=== PATIENT | male | born 1960 | race Caucasian/White ===

== ENCOUNTER 2025-04-14 06:06 | Inpatient (IN) | payer OTHER, SELFPAY ==
[2025-04-08 11:23] LABS: Hematocrit 49.2 % (39.0-52.0); Hemoglobin 16.4 g/dL (13.0-18.0); Mean Corp Hgb Conc. 33.3 g/dL (33.0-37.0); Mean Corpuscular Hgb 30.3 pg (27.0-31.0); Mean Corpuscular Volume 90.8 fL (80.0-94.0); Mean Platelet Volume 13.7 fL (7.4-10.4); Platelet Count 180 10^3/uL (130-400); Red Blood Cell Count 5.42 10^6/uL (4.70-6.10); Red Cell Dist. Width 13.1 % (11.5-14.5); White Blood Cell Count 10.9 10^3/uL (4.8-10.8)
[2025-04-08 12:59] LABS: Glycohemoglobin (HgbA1c) 5.4 % (4.0-5.6)
[2025-04-08 13:45] VITALS: BMI 38.6
[2025-04-08 13:52] LABS: ALT (SGPT) 17 U/L (0-50); AST (SGOT) 20 U/L (17-59); Albumin 4.3 g/dl (3.5-5.0); Alkaline Phosphatase 70 U/L (38-126); Blood Urea Nitrogen 24 mg/dl (9-20); Carbon Dioxide 22 mmol/L (22-30); Chloride 108 mmol/L (98-107); Estimated Creatinine Clearance 69 ml/min; Glucose 90 mg/dl (70-99); Potassium 4.9 mmol/L (3.5-5.1); Sodium 142 mmol/L (135-145); Total Bilirubin 2.5 mg/dl (0.2-1.3); Total Protein 6.9 g/dl (6.3-8.2); eGFR 56.48
[2025-04-08 15:10] VITALS: BMI 38.6
[2025-04-14] VITALS (47 sets, daily range): BP systolic 55–151; BP diastolic 40–91; PULSE 81; O2SAT 95
[2025-04-14] MEDS: CELEBREX 200 MG PO (06:23)
[2025-04-14] MEDS: TYLENOL 650 MG PO ×4 (06:23→20:09)
[2025-04-14] MEDS: NORMOSOL-R/PLASMALYTE-A 1000 IV ×2 (06:40→11:42)
--- NOTE | 2025-04-14 08:12 | W.PN.ORTHO ---
Today's Communication / Plan
-
d/c when stable
Assessment
.
Distal Motor Intact: Yes
Dressing:
Clean, dry and intact.
Assessment:
Hypotensive pxgc-gcoenhnagik-spylqjvuho consulted-Diego being weaned
-improving and likely off by am-asymptomatic
-continue Midodrine given need for heart meds which will lower pressure
Coronary artery disease with ischemic cardiomyopathy and
diminished ejection fraction. IV fluid rate will be lowered. He
will be placed on telemetry with his heart meds resumed
and daily weight w/ I&O monitored.
Near morbid obesity. We will provide cefadroxil prophylaxis
following discharge for infection prevention.
__
Plan
.
Surgery / Date: L TKA -early d/c
DVT Prophylaxis: Aspirin
Activity:
Out of bed.
PT/OT
Discharge Plan: Home w/ Outpatient PT
Subjective
.
.:
No complaints
Vital Signs and Labs
.
Vital Signs and Labs:
Lab Results
04/08/25 10:48
04/08/25 10:48
Temp Pulse Resp BP Pulse Ox
97.6 F 77 16 104/72 98
04/14/25 06:29 04/14/25 06:29 04/14/25 06:29 04/14/25 06:29 04/14/25 06:29
Physical Exam
-
HEENT: No pallor, cyanosis, or jaundice. Throat clear.
NECK: Supple. No JVD.
RESPIRATORY: Lungs clear to auscultation.
CVS: S1, S2 normal. RRR.� No murmur, rub or gallop.
ABDOMEN: Soft, non-tender. No distension. BS+/normal.
EXTREMITIES: strength equal, no calf pain with palpation
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 No focal deficits. airplane woodworker grossly intact
--- NOTE | 2025-04-14 09:25 | OR.RPT ---
Operative Report
Operative Report
Orthopaedic Surgery Operative Note
DATE OF OPERATION: 04/14/2025
PREOPERATIVE DIAGNOSES: Osteoarthritis, left knee.
POSTOPERATIVE DIAGNOSES: Osteoarthritis, left knee.
OPERATION PERFORMED:
1) Left total knee arthroplasty (CPT 63143 - 22 modifier)
2) Intraosseous administration of analgesic (CPT 95165)
SURGEON: Jaren Melgar MD
ASSISTANTS: Timi Mcgill PA-C who helped with patient and limb positioning and retraction
ANESTHESIA: Spinal by anesthesia plus intraoperative infusion of morphine into the tibial metaphysis by Dr. Melgar
COMPLICATIONS: None.
ESTIMATED BLOOD LOSS: 20mL
DRAINS: None
TOURNIQUET TIME: 54 minutes.
IMPLANTS:
- Julieta Persona CR Femur, size 8
- Julieta Persona tibia base plate, size E
- Julieta Persona ultracongruent articular surface, 10 mm
- DJO [place] bone cement
INDICATIONS: The patient presented to my office with debilitating left knee pain due to osteoarthritis. We reviewed the natural history of this problem, as well as the risks, benefits, and alternatives of various treatment options. The patient
exhausted all nonoperative treatment options and wished to proceed with knee replacement surgery. The patient understood the risks which included, but were not limited to, bleeding, infection, failure to relieve pain, more pain than preop, damage to
blood vessels and nerves, need for reoperation, mechanical failure of the implants, wound healing problems, stiffness, instability, blood clot, pulmonary embolism, myocardial infarction, pneumonia, arrhythmia, CVA, and . The patient accepted
these risks and wished to proceed. All questions were answered, and informed consent was obtained.
PROCEDURE IN DETAIL: The patient was identified in the preoperative holding area. The left knee was identified as the operative site. The patient was taken in the operating room and placed in a supine position on the operating table. Spinal
anesthesia was performed. IV antibiotics and tranexamic acid were administered. An SCD was placed on the right lower extremity. A well-padded tourniquet was placed on the proximal thigh. All bony prominences were well padded. The left lower
extremity was prepped and draped in the usual sterile fashion.
We performed a surgical time-out. An interarticular block was performed with local anesthetic with epinephrine. The limb was exsanguinated with an Esmarch bandage, then the tourniquet was inflated to 250 mmHg. I performed interosseous administration
of morphine-saline solution via a Jamshidi style intraosseous needle into the proximal medial tibial metaphysis as described by Elder Romero MD. This was performed to aid in pain control. A midline skin incision was made followed by a medial
parapatellar arthrotomy. A subperiosteal peel was performed on the medial tibia. I excised part of the infrapatellar fat pad to improve our visualization as well as tissue over anterior femur. The patella was everted and the knee was flexed. I
excised the remnants of the anterior and posterior cruciate ligaments as well as tibial and femoral osteophytes with rongeurs.
The knee was flexed, and the extramedullary tibial cutting guide was aligned. [place] was aligned at neutral, rotation was centered on the tibial tubercle, and coronal alignment was aligned with the mechanical axis of the tibia and center of the ankle
joint. The cut height was 10mm off the lateral tibia joint surface. The guide was secured into place. The MCL and LCL were protected. The tibia surface was cut. The cut surface was inspected after removal to ensure appropriate height and slope based
on the preoperative plan. The cut was checked with a drop josé manuel. It was centered nicely at the ankle.
A drill was used to open the femoral canal. The intramedullary distal femoral cutting guide was inserted into the femur. This was set at 5 degrees +0. This was secured into place with three pins. The cut level was checked with an elina wing. The
distal femur was cut through the cutting guide. The IM guide was reinserted to double check that the level of resection was flush and in appropriate alignment.
Callahan's line and the transepicondylar axis were marked on the femur. The femoral sizing guide was applied to the anterior femur. Size was between 7 and 8. 8 was selected to start. Pins were inserted, and the 4-in-1 cutting guide was applied and
secured into place. The rotation was compared to Callahan's line, the transepicondylar axis, and the neutral tibia cut and was found to be appropriate. The width was checked and found to be appropriate and lateralized on the femur. The anterior,
posterior, and chamfur cuts were made. A lamina test design engineer was used to open the flexion gap, and posterior osteophytes were removed with a curved osteotome. The remnant medial and lateral meniscus were also removed. I prophylactically cauterized the
lateral geniculate arteries. A 10mm spacer block was applied to the flexion gap and was noted to be balanced medially and laterally. The knee was extended, and the block showed symmetric to extension and flexion gaps.
The tibia was exposed and sized. Rotation was set in line with the tibial tubercle and congruent with the femur. The trial was secured into place with two pins. The trial femur was impacted into place, and a trial articular surface was placed. The
knee was taken through range of motion and noted to be stable throughout the arc of motion without gaping or excess tension. The patella tracked centrally throughout the arc of motion without need for further releases. No full thickness cartilage
defects.
The trials were removed. The tibia keel was prepared with the punch and the drill. The bone surfaces were irrigated with sterile saline and dried. The cement was mixed in a vacuum mixer. Cement gun was used to apply cement to the tibial surface and
the undersurface of the tibial implant. Cement was pressurized into the tibial canal and tibia surface. The tibial component was impacted into place. Excess cement was removed. Cement was applied to the femoral surface and the femoral component. The
femoral component was impacted into place, and excess cement removed. A trial articular surface was inserted, and the knee was extended while the cement polymerized. The tourniquet was let down, and meticulous hemostasis was achieved. Dilute
betadine was poured into the wound and allowed to soak for 3 minutes. The knee was irrigated with copious normal saline.
Once the cement was polymerized, the trial articular surface was removed. Any excess cement was removed. The knee was trialed, and the final articular surface was selected and inserted into the tibial locking mechanism. The knee was reduced. A fresh
drape was applied to the surgical field.
The arthrotomy was closed with 0-PDS. Once closed, an interarticular block was performed with local anesthetic with epi. The deep dermal layer was closed with 2-0 PDS, and the subcuticular skin was closed with 3-0 monocryl. A Dermabond Prineo
dressing was applied to the skin in full flexion. Once this was completely dry, a sterile waterproof dressing was applied.
The anesthesia team performed an adductor canal block in the OR. The patient awoke from anesthesia without any difficulties. The sponge and instrument counts were correct x2 at the end of the case.
22 modifier was added for BMI >35kg/m2 which added 20 additional minutes for positioning, exposure, and implanting the components.
Kain Melgar MD
[2025-04-14] MEDS: NEO-SYNEPHRINE 250 IV (09:40)
[2025-04-14] MEDS: ROXICODONE 5 MG PO ×2 (10:28→18:41)
--- NOTE | 2025-04-14 11:34 | CON.CAR ---
Addendum entered and electronically signed by Curly Masterson MD 04/14/25 15:01:
I saw and examined the patient.
The BOX WORKER's note was reviewed and I agree with the note.
Comment: 64 y/o male ([facility] cardiology, Dr. Murrell) with hx CAD with hx stenting (2012 per OP chart), ICM EF (most recent EF unknown he thinks 30-35% in December, was 20-25% 2020 by echo, ICD (BS), HTN, HLD, COLIN, and obesity s/p L TKA today and had
some post op hypotension briefly requiring phenylephrine. Now off and sbp back to 110's. He has no complaints. He has no sob or dizziness. No cp. Exam is rrr, no m/r/g, lungs cta. I suspect this is transient post op hypotnesion due to anesthetics
and his chronic gdmt. Will hold entresto and hopefully add back prior to discharge. Will follow
Original Note:
Consultation
Consultation Request
Date/Time Consultation Requested: 04/14/25 1101
Date/Time Consultation Performed: 04/14/25 1135
Requesting Provider: Lizzie PARDO
Performing Provider: Yovana PENNY for Dr. Masterson
Reason for Consultation: cardiac history and meds, hypotension requiring pressors
Medical History
-
Chief Complaint: knee replacement surgery
History of Present Illness:
64 y/o male ([facility] cardiology, Dr. Murrell) with hx CAD with hx stenting (2012 per OP chart), ICM EF (most recent EF unknown he thinks 30-35% in December, was 20-25% 2020 by echo, ICD (BS), HTN, HLD, COLIN, and obesity who has left knee OA and is s/p
left total knee arthroplasty. We are consulted since post-op he has required phenylephrine for BP support, and due to his cardiac history as stated he is on multiple medications that affect BP. Midodrine was started by surgical team. He looks and
feels well at the time of my assessment. No CP, SOB, dizziness. He remains on phenylephrine 20 mcg/min in PACU and will be transferred to IMU.
Past Medical History
Past Medical History: CAD, CHF, HTN, Hypercholesterolemia and Other (as above)
Social History
Tobacco: Non-Smoker
Alcohol: Occasional
Allergies / Home Medications
Allergy/AdvReac Type Severity Reaction Status Date / Time
No Known Allergies Allergy Verified 04/14/25 06:15
�Medication �Instructions �Recorded �Confirmed �Type
atorvastatin 40 mg tablet 40 mg PO HS 09/26/22 04/14/25 History
carvedilol 6.25 mg tablet (Coreg) 6.25 mg PO BID 09/26/22 04/14/25 History
sacubitril 97 mg-valsartan 103 mg 1 tab PO BID 09/26/22 04/14/25 History
tablet (Entresto)
dapagliflozin propanediol 5 mg 5 mg PO DAILY 04/07/25 04/14/25 History
tablet (Farxiga)
semaglutide (weight loss) 1.7 1.7 mg SC WE 04/07/25 04/14/25 History
mg/0.75 mL subcutaneous pen
injector (Wegovy)
cefadroxil 500 mg capsule 500 mg PO BID infection prevention 04/08/25 Rx
#14 caps
celecoxib 200 mg capsule 200 mg PO DAILY Anti-inflammatory 04/08/25 Rx
#14 caps
dexamethasone 4 mg tablet 4 mg PO BID inflammation #6 tabs 04/08/25 Rx
famotidine 20 mg tablet 20 mg PO HS GI prophylaxis #30 tabs 04/08/25 Rx
gabapentin 300 mg capsule 300 mg PO HS sleep/pain #10 caps 04/08/25 Rx
mupirocin 2 % topical ointment 1 applic topical BID infection 04/08/25 Rx
prevention #1 tube
ondansetron 4 mg disintegrating 4 mg PO Q6H PRN n/v #20 tabs 04/08/25 Rx
tablet
oxycodone 5 mg tablet 5 mg PO Q6H PRN 1 tab moderate 04/08/25 Rx
pain, 2 tabs severe pain #30 tabs
Saccharomyces boulardii 250 mg 250 mg PO BID #1 cap 04/14/25 Rx
capsule (Florastor)
acetaminophen 500 mg tablet 1,000 mg (2 x 500 mg) PO QID #0 04/14/25 04/14/25 Rx
tabs
aspirin 325 mg tablet 325 mg PO DAILY blood clot 04/14/25 Rx
prevention #1 tab
docusate sodium 100 mg capsule 100 mg PO BID stool softner #1 cap 04/14/25 Rx
(Colace)
magnesium hydroxide 400 mg/5 mL 30 ml PO HS PRN constipation #1 mL 04/14/25 Rx
oral suspension (Milk of Magnesia)
sennosides 8.6 mg tablet (Senokot) 17.2 mg (2 x 8.6 mg) PO BID 04/14/25 Rx
laxative #2 tabs
spironolactone 25 mg tablet 25 mg PO DAILY #0 tabs 04/14/25 04/14/25 Rx
Review of Systems
-
History Source: Patient
All other systems: Negative unless noted (no symptoms)
Physical Exam
Vital Signs
Temp Pulse Resp BP Pulse Ox
97.3 F 62 19 101/80 100
04/14/25 10:30 04/14/25 11:15 04/14/25 11:15 04/14/25 11:15 04/14/25 11:15
Lab Results
04/08/25 10:48
04/08/25 10:48
Physical Exam
General: Well Developed, Well Nourished and No Apparent Distress
HEENT: Normocephalic and Anicteric
Respiratory: Clear and Non Labored Respirations
Cardiac: Regular Rhythm
Musculoskeletal: No Edema
Skin: Warm and Dry
Neuro: AO x 3
Psych: Calm
Impression / Plan
-
Left knee OA s/p left total knee replacement:
-post-op management including DVT prophylaxis per ortho surgery
-post-op hypotension noted. Wean phenylephrine as tolerated per protocol, which requires intensive monitoring. Post-op EKG ordered.
CAD with stenting 2012:
-stable without CP
-continue ASA, statin, BB
ICM:
-stable in that he does not appear volume overloaded
-on GDMT with spironolactone, Farxiga, Entresto, and Coreg- layer back on once BP will tolerate
-ICD in place (BS)
Data Reviewed
-
EKG: Tracing Personally Visualized and interpreted (EKG 12/17/24: SR, nonspecific QRS widening and anterior fasicular block. Will ordered updated EKG.)
Radiology: Report Reviewed by me (knee XR: Status post left total knee replacement, which appears in satisfactory position.)
Labs: Labs Reviewed by me
Old Records: Reviewed (pre-op cardiac clearance, Dr. Murrell 12/17/24 with addendum 04/11/25)
--- NOTE | 2025-04-14 15:10 | W.DS.TRANS ---
DC Summary - Four H Agent
-
Discharge Instructions:
Discharge Diagnosis/Procedures L TKA Dr. Olivas D/C
Diet As tolerated
Activity With Walker
Additional Activity Adequate hydration, minimize Oxy and wear TEDs
stockings to prevent low blood pressure/
dizziness
Driving Restrictions No driving
Bathing Restrictions OK to Shower
Other Services PT
Instructions:
Stand-Alone Forms: Total Hip/Knee Replacement D/C
Changes to Home Medications: Yes
Discharge Medications:
DC Medications w/original date entered in [facility]
atorvastatin 40 mg tablet 40 mg PO HS 09/26/22
carvedilol 6.25 mg tablet (Coreg) 6.25 mg PO BID 09/26/22
sacubitril 97 mg-valsartan 103 mg tablet (Entresto) 1 tab PO BID 09/26/22
dapagliflozin propanediol 5 mg tablet (Farxiga) 5 mg PO DAILY 04/07/25
semaglutide (weight loss) 1.7 mg/0.75 mL subcutaneous pen injector (Wegovy) 1.7 mg SC WE 04/07/25
cefadroxil 500 mg capsule 500 mg PO BID infection prevention #14 caps 04/08/25
celecoxib 200 mg capsule 200 mg PO DAILY Anti-inflammatory #14 caps 04/08/25
dexamethasone 4 mg tablet 4 mg PO BID inflammation #6 tabs 04/08/25
famotidine 20 mg tablet 20 mg PO HS GI prophylaxis #30 tabs 04/08/25
gabapentin 300 mg capsule 300 mg PO HS sleep/pain #10 caps 04/08/25
mupirocin 2 % topical ointment 1 applic topical BID infection prevention #1 tube 04/08/25
ondansetron 4 mg disintegrating tablet 4 mg PO Q6H PRN n/v #20 tabs 04/08/25
oxycodone 5 mg tablet 5 mg PO Q6H PRN 1 tab moderate pain, 2 tabs severe pain #30 tabs 04/08/25
Saccharomyces boulardii 250 mg capsule (Florastor) 250 mg PO BID #1 cap 04/14/25
acetaminophen 500 mg tablet 1,000 mg (2 x 500 mg) PO QID #0 tabs 04/14/25
aspirin 325 mg tablet 325 mg PO DAILY blood clot prevention #1 tab 04/14/25
docusate sodium 100 mg capsule (Colace) 100 mg PO BID stool softner #1 cap 04/14/25
magnesium hydroxide 400 mg/5 mL oral suspension (Milk of Magnesia) 30 ml PO HS PRN constipation #1 mL 04/14/25
sennosides 8.6 mg tablet (Senokot) 17.2 mg (2 x 8.6 mg) PO BID laxative #2 tabs 04/14/25
spironolactone 25 mg tablet 25 mg PO DAILY #0 tabs 04/14/25
Home Medication Changes
cefadroxil 500 mg capsule 500 mg PO BID infection prevention #14 caps 04/08/25
celecoxib 200 mg capsule 200 mg PO DAILY Anti-inflammatory #14 caps 04/08/25
dexamethasone 4 mg tablet 4 mg PO BID inflammation #6 tabs 04/08/25
famotidine 20 mg tablet 20 mg PO HS GI prophylaxis #30 tabs 04/08/25
gabapentin 300 mg capsule 300 mg PO HS sleep/pain #10 caps 04/08/25
mupirocin 2 % topical ointment 1 applic topical BID infection prevention #1 tube 04/08/25
ondansetron 4 mg disintegrating tablet 4 mg PO Q6H PRN n/v #20 tabs 04/08/25
oxycodone 5 mg tablet 5 mg PO Q6H PRN 1 tab moderate pain, 2 tabs severe pain #30 tabs 04/08/25
Saccharomyces boulardii 250 mg capsule (Florastor) 250 mg PO BID #1 cap 04/14/25
acetaminophen 500 mg tablet 1,000 mg (2 x 500 mg) PO QID #0 tabs 04/14/25
aspirin 325 mg tablet 325 mg PO DAILY blood clot prevention #1 tab 04/14/25
docusate sodium 100 mg capsule (Colace) 100 mg PO BID stool softner #1 cap 04/14/25
magnesium hydroxide 400 mg/5 mL oral suspension (Milk of Magnesia) 30 ml PO HS PRN constipation #1 mL 04/14/25
sennosides 8.6 mg tablet (Senokot) 17.2 mg (2 x 8.6 mg) PO BID laxative #2 tabs 04/14/25
spironolactone 25 mg tablet 25 mg PO DAILY #0 tabs 04/14/25
Pending Results: No
--- NOTE | 2025-04-14 15:20 | PTCARENOTE ---
Pt received from PACU. Aox3, very pleasant. NSR on tele monitor. BP stable with Diego infusing, see worklist. L knee surgical dressing C/D/I. Neurovascular check completed, pt reports numbness and inability to move toes on L foot. Foot warm with good
pulses and cap refill. Dr. Melgar notified, no further orders received.
[2025-04-14] MEDS: ProAmatine 5 MG PO (15:56)
[2025-04-14] MEDS: ANCEF 5 IV ×2 (15:59→22:09)
--- NOTE | 2025-04-14 16:20 | PTCARENOTE ---
Pt reports improving sensation in L foot.
--- NOTE | 2025-04-14 16:47 | CARDSERVLU ---
Echocardiogram with Lumason completed after protocol screening completed. Allergies verified.
Patent IV site: _RH____
IV site flushed with 0.9% NaCl pre and post administration.
Diluted bolus method utilized to enhance visualization of ventricular flower.
Total volume given: __3__ mL
Patient tolerated all procedures well without complications.
[2025-04-14] MEDS: ProAmatine PO (18:39)
[2025-04-14] MEDS: ASPIRIN 325 MG PO (18:41)
--- NOTE | 2025-04-14 18:54 | PTCARENOTE ---
Pt's SBP WNL and Map over 65. Diego off per order.
[2025-04-14] MEDS: COREG 3.125 MG PO (20:09)
[2025-04-14] MEDS: COLACE 100 MG PO (20:09)
[2025-04-14] MEDS: SENOKOT 17.2 MG PO (20:09)
[2025-04-14] MEDS: ZOFRAN 4 MG IV (20:12)
--- NOTE | 2025-04-14 20:26 | PTCARENOTE ---
Pt with small amount of blood from penis associated with burning feeling. Pt denies hx of bloody urine. Bladder scan performed <400 at this time. Pt encouraged to attempt to void to the best of his ability. PUBLIC WORKS MANAGER notified of new symptoms. Care
ongoing.
[2025-04-14] MEDS: PEPCID 20 MG PO (21:39)
[2025-04-14] MEDS: BACTROBAN 2% OINTMENT 1 APPLIC NASAL (21:39)
[2025-04-14] MEDS: NEURONTIN 300 MG PO (21:39)
[2025-04-14] MEDS: TORADOL 15 MG IV (21:39)
[2025-04-14] MEDS: ULTRAM 50 MG PO (21:39)
[2025-04-14] MEDS: LIPITOR 40 MG PO (21:39)
[2025-04-14] MEDS: DECADRON 4 MG IV (21:41)
[2025-04-14] MEDS: TYLENOL PO (23:06)
[2025-04-15] VITALS (19 sets, daily range): BP systolic 101–156; BP diastolic 70–104; PULSE 96; O2SAT 96
--- NOTE | 2025-04-15 01:13 | PTCARENOTE ---
Pt reports increasing sensation in L foot and toes with ability to move them. LLE dressing remains CDI. States that pain in well controlled at this time, but worsens with movement. Assessment as documented. VSS. Care ongoing.
[2025-04-15] MEDS: TYLENOL PO (03:33)
[2025-04-15] MEDS: ULTRAM 50 MG PO (05:14)
[2025-04-15] MEDS: TORADOL 15 MG IV (05:15)
[2025-04-15] MEDS: DECADRON 4 MG IV (05:15)
[2025-04-15 06:50] LABS: Hepatitis C Antibody Negative (Negative)
[2025-04-15] MEDS: ZOFRAN 4 MG IV (08:27)
[2025-04-15] MEDS: ASPIRIN 325 MG PO (08:30)
[2025-04-15] MEDS: FLOMAX 0.4 MG PO ×2 (08:30→11:16)
[2025-04-15] MEDS: COREG 3.125 MG PO (08:31)
[2025-04-15] MEDS: FARXIGA 5 MG PO (08:32)
[2025-04-15] MEDS: TYLENOL 650 MG PO ×2 (08:33→11:16)
[2025-04-15] MEDS: ProAmatine PO (08:33)
[2025-04-15] MEDS: COLACE 100 MG PO (08:35)
[2025-04-15] MEDS: SENOKOT 17.2 MG PO (08:35)
[2025-04-15] MEDS: CELEBREX 200 MG PO (08:35)
[2025-04-15] MEDS: BACTROBAN 2% OINTMENT 1 APPLIC NASAL (08:36)
--- NOTE | 2025-04-15 09:33 | CM ---
Cm reviewed medical records. CM met with patient. CM confirmed demographics. Patient lives independently. Patient does not have a history of VN, SNF. Patient has a walker and can. Patient is active with his PCP. Patient has medication coverage.
Patient has outpatient physical therapy set up at [facility] for 04/18.
CM was updated by PT that patient continues to be appropriate for outpatient PT.
PLAN: Outpatient PT.
--- NOTE | 2025-04-15 10:24 | W.PN.CD ---
Today's Communication / Plan
-
- Postoperative hypotension; resolved.
- Atrial paced on telemetry; stable.
- Denies any anginal symptoms.
- Continue home regimen of aspirin, atorvastatin, and Coreg.
- Can discharge on home medication regimen of spironolactone, Farxiga, Entresto, and Coreg--discontinue midodrine.
- Outpatient follow-up with primary Supervising Chef Dr. Murrell.
Impression / Plan
-
Left knee OA s/p left total knee replacement:
- Postoperative hypotension; resolved.
- Rehabilitation as per orthopedic surgery.
CAD with stenting 2013:
- Denies any anginal symptoms.
- Continue home regimen of aspirin, atorvastatin, and Coreg.
ICM (EF 35-40%)/ICD:
- Appears to be clinically stable/compensated on examination.
- Can discharge on home medication regimen of spironolactone, Farxiga, Entresto, and Coreg--discontinue midodrine.
- Atrial paced on telemetry; stable.
Physical Exam
Vital Signs/Labs
Vital Signs
Temp Pulse Resp BP Pulse Ox
97.8 F 72 19 137/91 93
04/15/25 08:01 04/15/25 08:31 04/15/25 05:00 04/15/25 08:34 04/15/25 05:00
04/08/25 10:48
04/08/25 10:48
Physical Exam
Constitutional: No acute distress and Comfortable
EENT: Anicteric
Cardiovascular: Rhythm & rate is regular, Pedal edema is absent, Systolic murmur absent and S1S2 is normal
Respiratory: Respiratory effort normal and Lungs clear to auscul.
GI: Soft
Neuro/Psych: AO x 3
Other: Skin (Warm, dry, intact)
Data Reviewed
-
Date of Service: April 15, 2025
EKG: Tracing Personally Visualized and interpreted (Atrial paced)
Echo: Report Reviewed by me (EF 36%)
Medical Tests (PFT, Pathology etc): Discussed with Patient
Labs: Labs Reviewed by me
--- NOTE | 2025-04-15 10:44 | PTCARENOTE ---
Addendum entered by Young Flores RN 04/15/25 16:06:
Patient voided 200ml yellow urine in urinal. PVR 198ml. Notified MD Daugherty. Patient cleared for DC. All DC instructions discussed with patient and his son. All questions answered. Patient to be taken to car by wheelchair with staff. VSS. IV and tele
removed. Hearing aids and all belongings with patient.
Original Note:
Patient AAOx3, reports pain ranging from 3-6 depending on movement. Up in chair. C/o nausea with some dry heaving, PRN zofran given. Patient retaining urine, PRN flomax given, following bladder scans, so far no void this shift. VSS. Patient actively
participating in PT. RA 94%, NSR on monitor. Patient making needs known. Will continue to closely monitor.
--- NOTE | 2025-04-15 10:50 | W.PN.ORTHO ---
Today's Communication / Plan
-
d/c if voiding-PVR
Assessment
.
Distal Motor Intact: Yes
Dressing:
Clean, dry and intact.
Assessment:
Hypotensive dejan-operatively
-cardiology consulted-Diego weaned--asymptomatic
-Midodrine was continued given need for heart meds which lower pressure
-1 additional dose prior to d/c
Coronary artery disease with ICM/HFrEF
-IV fluid rate lowered. Daily weight and I&O stable
-stable on telemetry with his heart meds resumed
Near morbid obesity. We will provide cefadroxil prophylaxis
following discharge for infection prevention.
Nausea-adjust opioid-IV Compazine now
Urinary retention-just informed re voiding issues
--dose additional Flomax and void trial
*Prevention of post-op complications re orthostasis and constipation/ileus --discussed and outlined in d/c instructions: TEDs stockings, minimizing opioid and adhering to bowel regimen*
Plan
.
Surgery / Date: L TKA -early d/c
DVT Prophylaxis: Aspirin
Activity:
Out of bed.
PT/OT
Discharge Plan: Home w/ Outpatient PT
Subjective
.
.:
Patient resting comfortably.
Nausea
Vital Signs and Labs
.
Vital Signs and Labs:
Lab Results
04/08/25 10:48
04/08/25 10:48
Temp Pulse Resp BP Pulse Ox
97.8 F 86 22 132/99 94
04/15/25 08:01 04/15/25 10:00 04/15/25 10:00 04/15/25 09:27 04/15/25 10:00
Physical Exam
-
HEENT: No pallor, cyanosis, or jaundice. Throat clear.
NECK: Supple. No JVD.
RESPIRATORY: Lungs clear to auscultation.
CVS: S1, S2 normal. RRR.� No murmur, rub or gallop.
ABDOMEN: Soft, non-tender. No distension. BS+/normal.
EXTREMITIES: strength equal, no calf pain with palpation
EDUCATION GENERAL MANAGER: AOx3. No focal deficits. floor mechanic grossly intact
[2025-04-15] MEDS: ProAmatine 5 MG PO (11:16)
[2025-04-15] MEDS: COMPAZINE 5 MG IV (11:16)
[2025-04-15 12:18] LABS: Hemoglobin 15.4 g/dL (13.0-18.0)
[2025-04-15 12:26] LABS: Blood Urea Nitrogen 32 mg/dl (9-20); Calcium 9.2 mg/dl (8.4-10.2); Carbon Dioxide 18 mmol/L (22-30); Chloride 110 mmol/L (98-107); Estimated Creatinine Clearance 60 ml/min; Glucose 168 mg/dl (70-99); Potassium 4.7 mmol/L (3.5-5.1); Sodium 136 mmol/L (135-145); eGFR 48.11
== END 2025-04-15 16:55 | disposition home or self-care (01) | DRG 470 ==
LOC: IMU 06:06
PROVIDERS: Physician Assistant Medical; ADMITTING PHYSICIAN Orthopaedic Surgery; CONSULT PHYSICIAN Internal Medicine Cardiovascular Disease; FAMILY PHYSICIAN Internal Medicine; REFERRING PHYSICIAN Internal Medicine Cardiovascular Disease
PROC: 0SRD0J9 Replacement of Left Knee Joint with Synthetic Substitute, Cemented, Open Approach (ICD-10-PCS; 2025-04-14)
DX: M17.12 Unilateral primary osteoarthritis, left knee (principal); I50.22 Chronic systolic (congestive) heart failure; I25.10 Atherosclerotic heart disease of native coronary artery without angina pectoris; I11.0 Hypertensive heart disease with heart failure; E66.01 Morbid (severe) obesity due to excess calories; R33.9 Retention of urine, unspecified; Z68.38 Body mass index [BMI] 38.0-38.9, adult; I25.5 Ischemic cardiomyopathy; I95.9 Hypotension, unspecified; E78.00 Pure hypercholesterolemia, unspecified; G47.33 Obstructive sleep apnea (adult) (pediatric); Z79.82 Long term (current) use of aspirin; Z79.899 Other long term (current) drug therapy; Z95.5 Presence of coronary angioplasty implant and graft
CPT/HCPCS: 36415; 73560; 80048; 80053; 83036; 85018; 85027; 86803; 87070; 93005; 93306; 97116; 97163; 97167; 97530; C1713; C1776; Q9950

== ENCOUNTER 2025-06-02 05:47 | Inpatient (IN) | payer OTHER, SELFPAY ==
[2025-05-18 11:03] VITALS: BMI 40.0
[2025-05-18 11:35] LABS: Hematocrit 41.5 % (39.0-52.0); Hemoglobin 13.7 g/dL (13.0-18.0); Mean Corp Hgb Conc. 33.0 g/dL (33.0-37.0); Mean Corpuscular Volume 92.0 fL (80.0-94.0); Platelet Count 249 10^3/uL (130-400); Red Cell Dist. Width 13.2 % (11.5-14.5)
[2025-05-18 12:10] LABS: Glycohemoglobin (HgbA1c) 5.1 % (4.0-5.6)
[2025-05-18 12:12] LABS: ALT (SGPT) 14 U/L (0-50); AST (SGOT) 17 U/L (17-59); Albumin 3.8 g/dl (3.5-5.0); Alkaline Phosphatase 91 U/L (38-126); Blood Urea Nitrogen 29 mg/dl (9-20); Calcium 9.3 mg/dl (8.4-10.2); Carbon Dioxide 21 mmol/L (22-30); Chloride 112 mmol/L (98-107); Estimated Creatinine Clearance 69 ml/min; Glucose 102 mg/dl (70-99); Potassium 4.6 mmol/L (3.5-5.1); Sodium 141 mmol/L (135-145); Total Protein 6.2 g/dl (6.3-8.2); eGFR 56.48
[2025-05-18 14:18] VITALS: BMI 40.0
[2025-06-02] VITALS (23 sets, daily range): BP systolic 73–133; BP diastolic 42–98; PULSE 80–84; BMI 40.0
[2025-06-02] MEDS: CELEBREX 200 MG PO (06:29)
[2025-06-02] MEDS: TYLENOL 650 MG PO ×3 (06:29→19:31)
[2025-06-02] MEDS: NORMOSOL-R/PLASMALYTE-A 1000 IV ×2 (06:30→11:18)
--- NOTE | 2025-06-02 11:14 | W.PN.UPDATE ---
Update Note
Progress Note Update
R knee OA s/p R TKA w/ Dr Melgar 06/02/25
- s/p L TKA, 03/2025, by Dr Melgar
DVT prophylaxis - ASA, b/l venous foot pumps
Hypertension with recent hypotension
Perioperative hypotension requiring Diego after L TKA
- Monitor BP
- Spironolactone recently reduced by mingle operator. Will add SBP to all anti-hypertensives
- Gentle IVF
- TEDS
- Midodrine TID for SBP <125
- Minimize opioids as able
CAD, status post PCI with GERARDO to LAD x2 2012
ICMrEF, status post ICD implant 2022
LBBB
- Monitor on tele
- Gentle IVF to prevent fluid overload
- Monitor weight, I&Os
COLIN, intolerant to device - monitor O2
- IS
- Add supplemental O2 HS
CKD stage 3 - minimize nephrotoxins
Post-surgical urinary retention, improving with Flomax - monitor voids and PVRs
- Flomax started 3 nights pre-op; continue nightly for 1 week post-op
HLD
Colon polyps
Obesity, BMI 39.9
[2025-06-02] MEDS: FARXIGA 5 MG PO (11:17)
[2025-06-02] MEDS: COMPAZINE 5 MG PO ×2 (11:17→16:12)
--- NOTE | 2025-06-02 11:21 | W.DS.TRANS ---
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
-
Discharge Instructions:
Discharge Diagnosis/Procedures R knee OA s/p R TKA w/ Dr Melgar 06/02/25
Diet Regular
Additional Diets Adequate hydration, minimize opioids, and wear
TEDs stockings to prevent low blood pressure/
dizziness.
Activity As tolerated,With Walker
Driving Restrictions Not until seen by your Dr
Bathing Restrictions OK to Shower
Other Services PT
Wound Care Leave dressing on until seen by surgeon's office
for follow-up in 2 weeks.
Specialty Instructions Weigh Daily
Instructions:
Stand-Alone Forms: Total Hip/Knee Replacement D/C
Changes to Home Medications: Yes
Discharge Medications:
DC Medications w/original date entered in [employer]
atorvastatin 40 mg tablet 40 mg PO HS High Cholesterol 09/26/22
carvedilol 6.25 mg tablet (Coreg) 6.25 mg PO BID Blood Pressure 09/26/22
dapagliflozin propanediol 5 mg tablet (Farxiga) 5 mg PO DAILY Heart Failure 04/07/25
semaglutide (weight loss) 2.4 mg/0.75 mL subcutaneous pen injector (Wegovy) 2.4 mg SC QWEEK wednesdays05/17/25
cefadroxil 500 mg capsule 500 mg PO BID #14 caps 05/18/25
dexamethasone 4 mg tablet 4 mg PO BID Anti-inflammatory #5 tabs 05/18/25
famotidine 20 mg tablet (Pepcid) 20 mg PO HS #30 tabs 05/18/25
gabapentin 300 mg capsule 300 mg PO HS neuropathic pain/sleep #10 caps 05/18/25
hydrocodone 5 mg-acetaminophen 325 mg tablet 1 - 2 tab PO Q6H PRN moderate-severe pain #30 tabs 05/18/25
mupirocin 2 % topical ointment 1 applic intranasal BID #1 tube 05/18/25
prochlorperazine maleate 5 mg tablet (Compazine) 5 mg PO TID PRN nausea and vomiting #30 tabs 05/18/25
tamsulosin 0.4 mg capsule (Flomax) 0.4 mg PO HS #10 caps 05/18/25
Saccharomyces boulardii 250 mg capsule (Florastor) 250 mg PO BID #14 caps 06/02/25
acetaminophen 325 mg tablet 650 mg (2 x 325 mg) PO Q6H PRN mild pain #60 tabs 06/02/25
aspirin 325 mg tablet 325 mg PO DAILY #30 tabs 06/02/25
docusate sodium 100 mg capsule 100 mg PO BID #30 caps 06/02/25
sacubitril 97 mg-valsartan 103 mg tablet (Entresto) 1 tab PO BID Heart Failure #1 tab 06/02/25
sennosides 8.6 mg tablet (Mimi-melany) 17.2 mg (2 x 8.6 mg) PO BID #30 tabs 06/02/25
spironolactone 25 mg tablet 12.5 mg (1/2 x 25 mg) PO DAILY #1 tab 06/02/25
Home Medication Changes
cefadroxil 500 mg capsule 500 mg PO BID #14 caps 05/18/25
dexamethasone 4 mg tablet 4 mg PO BID Anti-inflammatory #5 tabs 05/18/25
famotidine 20 mg tablet (Pepcid) 20 mg PO HS #30 tabs 05/18/25
gabapentin 300 mg capsule 300 mg PO HS neuropathic pain/sleep #10 caps 05/18/25
hydrocodone 5 mg-acetaminophen 325 mg tablet 1 - 2 tab PO Q6H PRN moderate-severe pain #30 tabs 05/18/25
mupirocin 2 % topical ointment 1 applic intranasal BID #1 tube 05/18/25
prochlorperazine maleate 5 mg tablet (Compazine) 5 mg PO TID PRN nausea and vomiting #30 tabs 05/18/25
tamsulosin 0.4 mg capsule (Flomax) 0.4 mg PO HS #10 caps 05/18/25
Saccharomyces boulardii 250 mg capsule (Florastor) 250 mg PO BID #14 caps 06/02/25
acetaminophen 325 mg tablet 650 mg (2 x 325 mg) PO Q6H PRN mild pain #60 tabs 06/02/25
aspirin 325 mg tablet 325 mg PO DAILY #30 tabs 06/02/25
docusate sodium 100 mg capsule 100 mg PO BID #30 caps 06/02/25
sennosides 8.6 mg tablet (Mimi-melany) 17.2 mg (2 x 8.6 mg) PO BID #30 tabs 06/02/25
Pending Results: No
--- NOTE | 2025-06-02 11:52 | PTCARENOTE ---
pt received from [facility]. aaox3. states min pain in right knee. dressing c/d/i. ice pack applied. ivf running. reviewed plan of care.
[2025-06-02] MEDS: ANCEF 5 IV ×2 (12:54→22:49)
--- NOTE | 2025-06-02 12:59 | CM ---
CM reviewed medical records. Patient will have outpatient physical therapy on 06/06 with [facility]. CM will remain available as needed.
PLAN: Outpatient PT at [facility].
--- NOTE | 2025-06-02 16:09 | OR.RPT ---
Operative Report
Operative Report
Orthopaedic Surgery Operative Note
DATE OF OPERATION: 06/02/2025
PREOPERATIVE DIAGNOSES: Osteoarthritis, right knee.
POSTOPERATIVE DIAGNOSES: Osteoarthritis, right knee.
OPERATION PERFORMED:
1) Right total knee arthroplasty (CPT 15603 - 22 modifier)
2) Intraosseous administration of analgesic (CPT 38673)
SURGEON: Jaren Melgar MD
ASSISTANTS: Zeynep Tolentino PA-C who helped with patient and limb positioning and retraction
ANESTHESIA: General by anesthesia plus intraoperative infusion of morphine into the tibial metaphysis by Dr. Melgar
COMPLICATIONS: None.
ESTIMATED BLOOD LOSS: 20mL
DRAINS: None
TOURNIQUET TIME: 46 minutes.
IMPLANTS:
- Julieta Persona CR Femur, size 9
- Julieta Persona tibia base plate, size E
- Julieta Persona ultracongruent articular surface, 12 mm
- DJO [place] bone cement
INDICATIONS: The patient presented to my office with debilitating right knee pain due to osteoarthritis. We reviewed the natural history of this problem, as well as the risks, benefits, and alternatives of various treatment options. The patient
exhausted all nonoperative treatment options and wished to proceed with knee replacement surgery. The patient understood the risks which included, but were not limited to, bleeding, infection, failure to relieve pain, more pain than preop, damage to
blood vessels and nerves, need for reoperation, mechanical failure of the implants, wound healing problems, stiffness, instability, blood clot, pulmonary embolism, myocardial infarction, pneumonia, arrhythmia, CVA, and . The patient accepted
these risks and wished to proceed. All questions were answered, and informed consent was obtained.
PROCEDURE IN DETAIL: The patient was identified in the preoperative holding area. The right knee was identified as the operative site. The patient was taken in the operating room and placed in a supine position on the operating table. General
anesthesia was performed. IV antibiotics and tranexamic acid were administered. An SCD was placed on the left lower extremity. A well-padded tourniquet was placed on the proximal thigh. All bony prominences were well padded. The right lower
extremity was prepped and draped in the usual sterile fashion.
We performed a surgical time-out. An interarticular block was performed with local anesthetic with epinephrine. The limb was exsanguinated with an Esmarch bandage, then the tourniquet was inflated to 250 mmHg. I performed interosseous administration
of morphine-saline solution via a Jamshidi style intraosseous needle into the proximal medial tibial metaphysis as described by Elder Romero MD. This was performed to aid in pain control. A midline skin incision was made followed by a medial
parapatellar arthrotomy. A subperiosteal peel was performed on the medial tibia. I excised part of the infrapatellar fat pad to improve our visualization as well as tissue over anterior femur. The patella was everted and the knee was flexed. I
excised the remnants of the anterior and posterior cruciate ligaments as well as tibial and femoral osteophytes with rongeurs.
The knee was flexed, and the extramedullary tibial cutting guide was aligned. [place] was aligned at neutral, rotation was centered on the tibial tubercle, and coronal alignment was aligned with the mechanical axis of the tibia and center of the ankle
joint. The cut height was 10mm off the lateral tibia joint surface. The guide was secured into place. The MCL and LCL were protected. The tibia surface was cut. The cut surface was inspected after removal to ensure appropriate height and slope based
on the preoperative plan. The cut was checked with a drop josé manuel. It was centered nicely at the ankle.
A drill was used to open the femoral canal. The intramedullary distal femoral cutting guide was inserted into the femur. This was set at 5 degrees +0. This was secured into place with three pins. The cut level was checked with an elina wing. The
distal femur was cut through the cutting guide. The IM guide was reinserted to double check that the level of resection was flush and in appropriate alignment.
Dolores�s line and the transepicondylar axis were marked on the femur. The femoral sizing guide was applied to the anterior femur. Pins were inserted, and the 4-in-1 cutting guide was applied and secured into place. The rotation was compared to
Mildred�s line, the transepicondylar axis, and the neutral tibia cut and was found to be appropriate. The width was checked and found to be appropriate and lateralized on the femur. The anterior, posterior, and chamfur cuts were made. A lamina
spreader operator automatic was used to open the flexion gap, and posterior osteophytes were removed with a curved osteotome. The remnant medial and lateral meniscus were also removed. I prophylactically cauterized the lateral geniculate arteries. A 10mm spacer block
was applied to the flexion gap and was noted to be balanced medially and laterally. The knee was extended, and the block showed symmetric to extension and flexion gaps.
The tibia was exposed and sized. Rotation was set in line with the tibial tubercle and congruent with the femur. The trial was secured into place with two pins. The trial femur was impacted into place, and a trial articular surface was placed. The
knee was taken through range of motion and noted to be stable throughout the arc of motion without gaping or excess tension. In extension, a measured resection of the patella was performed. The patella tracked centrally throughout the arc of motion
without need for further releases. No full thickness cartilage defects.
The trials were removed. The tibia keel was prepared with the punch and the drill. The bone surfaces were irrigated with sterile saline and dried. The cement was mixed in a vacuum mixer. Cement gun was used to apply cement to the tibial surface and
the undersurface of the tibial implant. Cement was pressurized into the tibial canal and tibia surface. The tibial component was impacted into place. Excess cement was removed. Cement was applied to the femoral surface and the femoral component. The
femoral component was impacted into place, and excess cement removed. A trial articular surface was inserted, and the knee was extended while the cement polymerized. The tourniquet was let down, and meticulous hemostasis was achieved. Dilute
betadine was poured into the wound and allowed to soak for 3 minutes. The knee was irrigated with copious normal saline.
Once the cement was polymerized, the trial articular surface was removed. Any excess cement was removed. The knee was trialed, and the final articular surface was selected and inserted into the tibial locking mechanism. The knee was reduced. A fresh
drape was applied to the surgical field.
The arthrotomy was closed with 0-PDS. Once closed, an interarticular block was performed with local anesthetic with epi. The deep dermal layer was closed with 2-0 PDS, and the subcuticular skin was closed with 3-0 monocryl. A Dermabond Prineo
dressing was applied to the skin in full flexion. Once this was completely dry, a sterile waterproof dressing was applied.
The anesthesia team performed an adductor canal block in the OR. The patient awoke from anesthesia without any difficulties. The sponge and instrument counts were correct x2 at the end of the case.
Of note, 22 modifier was added for complexity due to BMI >35kg/m2 which required 20 additional minutes for positioning, exposure, and implanting the components.
Kain Melgar MD
[2025-06-02] MEDS: ASPIRIN 325 MG PO (17:49)
[2025-06-02] MEDS: DECADRON 4 MG PO (19:31)
[2025-06-02] MEDS: BACTROBAN 2% OINTMENT 1 APPLIC NASAL (19:31)
[2025-06-02] MEDS: SENOKOT 17.2 MG PO (19:31)
[2025-06-02] MEDS: COLACE 100 MG PO (19:31)
[2025-06-02] MEDS: PEPCID 20 MG PO (22:48)
[2025-06-02] MEDS: LIPITOR 40 MG PO (22:48)
[2025-06-02] MEDS: COMPAZINE PO ×2 (22:56→23:03)
[2025-06-03] MEDS: TYLENOL 650 MG PO (03:06)
[2025-06-03 03:10] VITALS: BP 94/57
[2025-06-03 06:00] VITALS: BMI 41.1
[2025-06-03] MEDS: NORCO 5/325 1 TABLET PO (06:20)
[2025-06-03 07:40] VITALS: BP 117/78
[2025-06-03 08:25] VITALS: BP 117/78; BP 120/83; PULSE 90; O2SAT 97
[2025-06-03] MEDS: BACTROBAN 2% OINTMENT 1 APPLIC NASAL (08:50)
[2025-06-03] MEDS: COLACE 100 MG PO (08:50)
[2025-06-03] MEDS: ASPIRIN 325 MG PO (08:50)
[2025-06-03] MEDS: COMPAZINE PO (08:51)
[2025-06-03] MEDS: DECADRON 4 MG PO (08:51)
[2025-06-03] MEDS: FARXIGA 5 MG PO (08:52)
[2025-06-03] MEDS: SENOKOT 17.2 MG PO (08:52)
--- NOTE | 2025-06-03 10:02 | W.PN.ORTHO ---
Today's Communication / Plan
-
R knee OA s/p R TKA w/ Dr Melgar 06/02/25
- s/p L TKA, 03/2025, by Dr Melgar
DVT prophylaxis - ASA, b/l venous foot pumps
Hypertension with recent hypotension
Perioperative hypotension requiring Diego after L TKA
- Monitor BP
- Spironolactone recently reduced by child psychometrist. Will add SBP to all anti-hypertensives
- Gentle IVF
- TEDS
- Midodrine TID for SBP <125
- Minimize opioids as able
CAD, status post PCI with GERARDO to LAD x2 2012
ICMrEF, status post ICD implant 2022
LBBB
- Monitor on tele
- Gentle IVF to prevent fluid overload
- Monitor weight, I&Os
COLIN, intolerant to device - monitor O2
- IS
- Add supplemental O2 HS
CKD stage 3 - minimize nephrotoxins
Post-surgical urinary retention, improving with Flomax - monitor voids and PVRs
- Flomax started 3 nights pre-op; continue nightly for 1 week post-op
HLD
Colon polyps
Obesity, BMI 39.9
Plan for DC today
Assessment
.
Distal Motor Intact: Yes
Dressing:
Clean, dry and intact.
Plan
.
Activity:
Out of bed.
PT/OT
Subjective
.
.:
Patient resting comfortably.
Vital Signs and Labs
.
Vital Signs and Labs:
Lab Results
05/18/25 11:12
05/18/25 11:12
Temp Pulse Resp BP Pulse Ox
98.4 F 85 18 114/69 96
06/03/25 07:40 06/03/25 08:52 06/03/25 07:40 06/03/25 08:52 06/03/25 07:40
Non-invasive Hgb result: 13
--- NOTE | 2025-06-03 10:03 | W.DCSUMMARY ---
Discharge Summary
Discharge Data
Date of Admission: 06/02/25
Date of Discharge: 06/03/25
-
Pending Results: No
Hospital Course
The patient underwent right total knee arthroplasty with Dr. Melgar on 02 June 2025 without complications. The patient recovered in the PACU and was transferred to the floor. The postoperative course remained uncomplicated. At the time of
discharge, the patient was noted to be tolerating a regular diet, ambulating with adherence to weightbearing and activity restrictions, able to accomplish activities of daily living at baseline level, and had pain controlled on oral medications.
Prior to discharge, the patient was provided with appropriate discharge/follow-up/return instructions, and discharge medications
Discharge Plan
-
Patient Disposition: Home (Routine Discharge)
Discharge Diagnosis/Procedures: R knee OA s/p R TKA w/ Dr Melgar 06/02/25
Condition: Good
Diet: Regular
Additional Diets: Adequate hydration, minimize opioids, and wear TEDs stockings to prevent low blood pressure/dizziness.
Activity: As tolerated and With Walker
Driving Restrictions: Not until seen by your Dr
Bathing Restrictions: OK to Shower
Other Services: PT
Wound Care: Leave dressing on until seen by surgeon's office for follow-up in 2 weeks.
Specialty Instructions: Weigh Daily- Call MD for wt gain/loss 3 lbs overnight/5 lbs in 1 week
Stand Alone Forms: Total Hip/Knee Replacement D/C
Referrals:
Gabriel Nicole MD [Family Provider, Internal Medicine]
Jaren Melgar MD [Active, Orthopedics] - in two weeks
Referral Note: If not already scheduled, call to make a follow-up appointment.
Additional Discharge Medication Instructions: TAKE BOWEL MEDS DIRECTED UNTIL HAVING REGULAR BMs TO AVOID OBSTRUCTION (regardless of oral intake).
Prescriptions:
New
hydrocodone-acetaminophen 5-325 mg tablet
1 - 2 tab PO Q6H PRN (Reason: moderate-severe pain) Qty: 30 0RF
Rx Instructions:
1 tab for moderate pain, 2 if severe.
Dx total joint.
dexamethasone 4 mg tablet
4 mg PO BID Qty: 5 0RF
Rx Instructions:
Restart night of discharge and continue twice a day until finished.
Take with food.
prochlorperazine maleate [Compazine] 5 mg tablet
5 mg PO TID PRN (Reason: nausea and vomiting) Qty: 30 0RF
famotidine [Pepcid] 20 mg tablet
20 mg PO HS Qty: 30 0RF
Rx Instructions:
Take nightly while on post-surgical pain meds to reduce GI upset.
cefadroxil 500 mg capsule
500 mg PO BID Qty: 14 0RF
Rx Instructions:
Start night of discharge and continue twice a day until finished.
Take with probiotic.
mupirocin 2 % ointment
1 applic intranasal BID Qty: 1 0RF
Patient Comments:
started treatment on friday05/30/25 and completed BID, last took at home 06/02/25
Rx Instructions:
Has from prior TKA
gabapentin 300 mg capsule
300 mg PO HS Qty: 10 0RF
tamsulosin [Flomax] 0.4 mg capsule
0.4 mg PO HS Qty: 10 0RF
Patient Comments:
started taking friday05/30/25 and last took 06/01/25 at 2100
Rx Instructions:
Start 3 nights prior to surgery.
Would advise continuing 7 days post-op for urinary retention prevention.
aspirin 325 mg Tablet
325 mg PO DAILY Qty: 30 0RF
Rx Instructions:
Take daily x4 weeks for blood clot prevention; then resume Aspirin 81 mg daily.
docusate sodium 100 mg Capsule
100 mg PO BID Qty: 30 0RF
sennosides [Mimi-melany] 8.6 mg Tablet
17.2 mg PO BID Qty: 30 0RF
acetaminophen 325 mg Tablet
650 mg PO Q6H PRN (Reason: mild pain) Qty: 60 0RF
Rx Instructions:
DO NOT exceed >4000 mg daily while on Council.
1 Council tab = 325 mg of Tylenol.
Saccharomyces boulardii [Florastor] 250 mg capsule
250 mg PO BID Qty: 14 0RF
Rx Instructions:
Over the counter. Take while on antibiotic.
If unavailable, choose a different probiotic.
Continued
atorvastatin 40 mg Tablet
40 mg PO HS
carvedilol [Coreg] 6.25 mg Tablet
6.25 mg PO BID
dapagliflozin propanediol [Farxiga] 5 mg Tablet
5 mg PO DAILY
Wegovy 2.4 mg/0.75 mL Pen Injector
2.4 mg SC QWEEK
Entresto 97-103 mg Tablet
1 tab PO BID Qty: 1 0RF
Rx Instructions:
HOLD IF systolic blood pressure <125 while on post-surgical narcotics.
Changed
spironolactone 25 mg tablet
12.5 mg PO DAILY Qty: 1 0RF
Rx Instructions:
HOLD IF systolic blood pressure <130 while on post-surgical narcotics.
Discontinued
aspirin 81 mg Tablet,Delayed Release (Dr/Ec)
81 mg PO DAILY
Discharge Orders:
Discharge Patient (As Directed); Ordered 06/03/25
Ordered By: Mata Way
Discharge Date and Time
Print Language: ROMANSH
[2025-06-03 10:13] LABS: Hepatitis C Antibody Negative (Negative)
[2025-06-03 11:50] VITALS: BP 130/74
== END 2025-06-03 12:40 | disposition home or self-care (01) | DRG 470 ==
LOC: 2 SOUTH 05:47
PROVIDERS: ADMITTING PHYSICIAN Orthopaedic Surgery; FAMILY PHYSICIAN Internal Medicine
PROC: 0SRC0J9 Replacement of Right Knee Joint with Synthetic Substitute, Cemented, Open Approach (ICD-10-PCS; 2025-06-02)
DX: M17.11 Unilateral primary osteoarthritis, right knee (principal); E78.5 Hyperlipidemia, unspecified; N18.30 Chronic kidney disease, stage 3 unspecified; I12.9 Hypertensive chronic kidney disease with stage 1 through stage 4 chronic kidney disease, or unspecified chronic kidney disease; I25.10 Atherosclerotic heart disease of native coronary artery without angina pectoris; Z95.5 Presence of coronary angioplasty implant and graft; Z95.810 Presence of automatic (implantable) cardiac defibrillator; I25.5 Ischemic cardiomyopathy; I44.7 Left bundle-branch block, unspecified; G47.33 Obstructive sleep apnea (adult) (pediatric); Z68.39 Body mass index [BMI] 39.0-39.9, adult; E66.9 Obesity, unspecified; Z79.84 Long term (current) use of oral hypoglycemic drugs
CPT/HCPCS: 36415; 73560; 80053; 83036; 85027; 86803; 87070; 97116; 97162; 97166; C1713; C1776